=== PATIENT | female | born 1955 | race Native Hawaiian/Other Pacific Islander ===

== ENCOUNTER 2017-06-20 14:47 | Outpatient (CLI) | payer BC | END 2017-06-20 19:25 | disposition home or self-care (01) | LOC: MAMMO 14:47 | DX: Z12.31 Encounter for screening mammogram for malignant neoplasm of breast (principal) ==

== ENCOUNTER 2017-08-06 09:05 | Inpatient (IN) | payer BC ==
[~2017-08-06] VITALS: Ht 152.4 cm; Wt 89.6 kg
[2017-08-06 09:19] VITALS: BP 154/84; TEMP 98.2
[2017-08-06 09:41] LABS: PLATELET COUNT 315 K/uL (152-353)
[2017-08-06 10:00] LABS: PARTIAL THROMBOPLASTIN TIME 23.2 SECONDS (24.5-33.6)
[2017-08-06 10:07] LABS: POTASSIUM 3.6 mmol/L (3.6-5.2); SODIUM 137 mmol/L (136-145)
[2017-08-06 12:00] VITALS: BP 193/86; TEMP 97
[2017-08-06 17:56] VITALS: BP 193/86; TEMP 97
[2017-08-06 19:24] VITALS: BP 193/86; TEMP 97.7; Ht 152.4 cm; Wt 89.6 kg
[2017-08-06 20:00] VITALS: BP 158/71; TEMP 97.6
[2017-08-07] VITALS: BP 135/60; TEMP 97.8
[2017-08-07 04:00] VITALS: BP 127/72; TEMP 97.9
[2017-08-07 05:21] LABS: PLATELET COUNT 269 K/uL (152-353)
[2017-08-07 05:40] LABS: POTASSIUM 4.3 mmol/L (3.6-5.2)
[2017-08-07 06:12] LABS: PARTIAL THROMBOPLASTIN TIME 24.1 SECONDS (24.5-33.6)
[2017-08-07 08:00] VITALS: BP 135/66; TEMP 98.4
[2017-08-07] MEDS ORDERED: LOSA50TA PO (08:25)
[2017-08-07] MEDS ORDERED: FLUOXETINE40 MG PO (08:25)
[2017-08-07] MEDS ORDERED: MELOXICAM15 MG OR (08:26)
[2017-08-07] MEDS ORDERED: ALAVERT10 M2 PO (08:26)
[2017-08-07] MEDS ORDERED: ESTRACE2 MG PO (08:27)
[2017-08-07] MEDS ORDERED: PANTOPRAZOLE 40MG TA PO (08:27)
[2017-08-07] MEDS ORDERED: AMLODIPINE BESYLATE PO (08:28)
[2017-08-07] MEDS ORDERED: TOPAMAX50 MG OR (08:28)
[2017-08-07 12:00] VITALS: BP 151/79; TEMP 98.9
== END 2017-08-07 13:45 | disposition home or self-care (01) | DRG 69 ==
LOC: ED 09:05 → MED/SURG 10:00
PROVIDERS: ADMIT Family Medicine
DX: G45.8 Other transient cerebral ischemic attacks and related syndromes (principal); J01.00 Acute maxillary sinusitis, unspecified; I10 Essential (primary) hypertension; E78.4 Other hyperlipidemia; G47.39 Other sleep apnea
CPT/HCPCS: 36415; 80053; 80061; 82550; 84484; 85027; 85379; 85610; 85730; 93005; 93306; 94760; 96374; 99284

== ENCOUNTER 2017-11-13 07:50 | Outpatient (CLI) | payer BC ==
[~2017-11-13 07:50] MED LIST: ALAVERT10 M2 PO; AMLODIPINE BESYLATE PO; ESTRACE2 MG PO; FLUOXETINE40 MG PO; LOSA50TA PO; MELOXICAM15 MG OR; PANTOPRAZOLE 40MG TA PO; TOPAMAX50 MG OR
== END 2017-11-13 19:12 | disposition home or self-care (01) ==
LOC: CT 07:50
DX: R10.84 Generalized abdominal pain (principal)
CPT/HCPCS: 36415; 82565; 84520; Q9963

== ENCOUNTER 2018-06-05 11:00 | Outpatient (CLI) | payer BC | END 2018-06-05 21:15 | disposition home or self-care (01) | LOC: RAD 11:00 | DX: Z01.818 Encounter for other preprocedural examination (principal) ==

== ENCOUNTER 2019-09-10 09:41 | Outpatient (CLI) | payer OTHER | END 2019-09-10 21:15 | disposition home or self-care (01) | LOC: RAD 09:41 | DX: R07.81 Pleurodynia (principal) ==

== ENCOUNTER 2019-09-17 09:37 | Outpatient (CLI) | payer OTHER | END 2019-09-17 19:20 | disposition home or self-care (01) | LOC: MAMMO 09:37 | DX: Z12.31 Encounter for screening mammogram for malignant neoplasm of breast (principal) ==

== ENCOUNTER 2020-11-10 09:06 | Outpatient (CLI) | payer OTHER | END 2020-11-10 20:40 | disposition home or self-care (01) | LOC: MAMMO 09:06 | PROVIDERS: ATTEND Nurse Practitioner | DX: Z12.31 Encounter for screening mammogram for malignant neoplasm of breast (principal) ==

== ENCOUNTER 2021-06-05 20:04 | Emergency (ER) | payer OTHER ==
[~2021-06-05] VITALS: Ht 152.4 cm; Wt 92.1 kg
[2021-06-05 21:10] LABS: PLATELET COUNT 296 K/uL (152-353)
[2021-06-05 23:35] VITALS: BP 171/87; TEMP 97.8
== END 2021-06-05 23:35 | disposition home or self-care (01) ==
LOC: ED 20:04
PROVIDERS: Emergency Medicine Emergency Medical Services
DX: G43.909 Migraine, unspecified, not intractable, without status migrainosus (principal)
CPT/HCPCS: 36415; 80053; 85027; 96360; 96375; 99284; J1200; J1885; J2270; J2405

== ENCOUNTER 2022-02-28 09:52 | Outpatient (CLI) | payer OTHER | END 2022-02-28 19:00 | disposition home or self-care (01) | LOC: MAMMO 09:52 | PROVIDERS: ATTEND Nurse Practitioner Family | DX: Z00.00 Encounter for general adult medical examination without abnormal findings (principal); Z12.31 Encounter for screening mammogram for malignant neoplasm of breast ==

== ENCOUNTER 2022-04-11 09:28 | Outpatient (CLI) | payer OTHER ==
[2022-04-11 10:32] LABS: PLATELET COUNT 319 K/uL (152-353)
[2022-04-11 11:22] LABS: POTASSIUM 3.9 mmol/L (3.6-5.2)
== END 2022-04-11 19:30 | disposition home or self-care (01) ==
LOC: LABW 09:28 → US 09:28 → LABW 19:30
PROVIDERS: ATTEND Student in an Organized Health Care Education/Training Program
DX: R94.4 Abnormal results of kidney function studies (principal); D63.1 Anemia in chronic kidney disease; E79.0 Hyperuricemia without signs of inflammatory arthritis and tophaceous disease; R80.8 Other proteinuria; N25.81 Secondary hyperparathyroidism of renal origin; E55.9 Vitamin D deficiency, unspecified; N18.9 Chronic kidney disease, unspecified; I12.9 Hypertensive chronic kidney disease with stage 1 through stage 4 chronic kidney disease, or unspecified chronic kidney disease
CPT/HCPCS: 36415; 80053; 80074; 81002; 82306; 82570; 83036; 83516; 83735; 83970; 84100; 84156; 84165; 84550; 85027; 86037; 86592; 86701; 86702; 87389

== ENCOUNTER 2022-05-10 14:33 | Outpatient (CLI) | payer OTHER ==
[2022-05-10 17:54] LABS: POTASSIUM 3.6 mmol/L (3.6-5.2)
== END 2022-05-10 19:15 | disposition home or self-care (01) ==
LOC: LABW 14:33
PROVIDERS: ATTEND Student in an Organized Health Care Education/Training Program
DX: N18.32 Chronic kidney disease, stage 3b (principal)
CPT/HCPCS: 36415; 80053